=== PATIENT | female | born 1995 | race African-American/Black ===

== ENCOUNTER 2017-06-15 04:25 | Emergency (ER) | payer SELFPAY | END 2017-06-15 04:55 | disposition home or self-care (01) | LOC: MADERS 04:25 | DX: J20.9 Acute bronchitis, unspecified (principal); R03.0 Elevated blood-pressure reading, without diagnosis of hypertension; F17.210 Nicotine dependence, cigarettes, uncomplicated | CPT/HCPCS: 99283 ==

== ENCOUNTER 2017-12-25 22:50 | Emergency (ER) | payer SELFPAY | END 2017-12-25 23:35 | disposition home or self-care (01) | LOC: MADERS 22:50 | DX: J01.90 Acute sinusitis, unspecified (principal); F17.210 Nicotine dependence, cigarettes, uncomplicated | CPT/HCPCS: 96372; J1040 ==